=== PATIENT | female | born 1985 | race American Indian/Alaskan Native ===

== ENCOUNTER 2020-07-11 07:07 | Day surgery (SDC) | payer MEDICAID ==
[2020-07-09 10:36] LABS: Hematocrit 35.1 % (30.3-42.9); Hemoglobin 10.9 gm/dl (10.1-14.3); Mean Corpuscular HGB Conc 31 % (30-34); Platelet Count 507 K/mm3 (140-440); Red Blood Count 5.11 M/mm3 (3.65-5.03); Red Cell Distribution Width 18.3 % (13.2-15.2)
[2020-07-09 10:46] LABS: Mean Corpuscular Volume 69 fl (79-97)
--- NOTE | 2020-07-10 16:21 | Short Stay Summary ---
Short Stay Documentation Date of service: 07/11/20 Narrative H&P: 35y/o with findings of a left vulvar mass. The patient reports pain from the site. The mass is consistent with a cyst. She requests removal and excision. Patient has been reassessed/reevaluated/re-examined. H&P has been reviewed. No interval changes. - History Principal diagnosis: Vulvar mass Past Medical History: other (morbid obesity; eczema; sickle cell trait) Past Surgical History: No surgical history Social history: single - Allergies and Medications Current Medications: Allergies No Known Allergies Allergy (Unverified 07/04/20 14:29) Home Medications Medication Instructions Recorded Confirmed Last Taken Type No Known Home Medications [No 07/04/20 07/04/20 Unknown History Reported Home Medications] Active Medications Lactated Ringer's (Lactated Ringers) 1,000 mls @ 100 mls/hr IV DIRECT EMELY Stop: 07/11/20 23:59 Midazolam HCl (Versed) 2 mg IV PREOP NR Stop: 07/11/20 23:59 - Physical exam General appearance: no acute distress Integumentary: no rash HEENT: Atraumatic Lungs: Clear to auscultation Breasts: deferred Heart: Regular rate Gastrointestinal: normal Female Genitourinary: deferred Rectal Exam: deferred - Brief post op/procedure progress note Date of procedure: 07/11/20 Pre-op diagnosis: Left vulvar mass Post-op diagnosis: other (Left vulvar sebaceous cyst) Procedure: Drainage and excision of sebaceous cyst Anesthesia: GETA Surgeon: MALLORIE JAEGER Estimated blood loss: minimal Pathology: list (Cyst wall) Specimen disposition: to lab Condition: stable - Hospital course Hospital course: The patient was admitted the day of surgery and underwent an excision of a left vulvar cyst. Please see operative note for details of surgery. Her postoperative course was uneventful. - Disposition Condition at discharge: Good Disposition: DC-01 TO HOME OR SELFCARE - Discharge Diagnoses (1) Vulvar cyst Status: Acute Short Stay Discharge Plan Activity: other (Pelvic rest for 3 to 4 weeks) Diet: regular Additional Instructions: Schedule follow-up with Dr. Jaeger in 2 weeks Prescriptions: Ibuprofen [Motrin] 800 mg PO Q8HR PRN #30 tablet PRN Reason: Pain , Severe (7-10) HYDROcodone/APAP 5-325 [Jackson 5/325] 1 each PO Q6HR PRN #15 tablet PRN Reason: Pain
[~2020-07-11 07:07] MED LIST: LACTATED RINGERS 1,000 ML IV SCH; MIDAZOLAM 2 MG/2 ML INJ IV NR
--- NOTE | 2020-07-11 08:04 | Anesthesia Consultation ---
Anesthesia Consult and Med Hx Date of service: 07/11/20 - Airway Anesthetic Teeth Evaluation: Good ROM Head & Neck: Adequate Mental/Hyoid Distance: Adequate Mallampati Class: Class I Intubation Access Assessment: Probably Good - Pulmonary Exam CTA: Yes - Cardiac Exam Cardiac Exam: RRR - Pre-Operative Health Status ASA Pre-Surgery Classification: ASA3 Proposed Anesthetic Plan: General - Pulmonary Hx Smoking: No Hx Respiratory Symptoms: No - Cardiovascular System Hx Hypertension: No Hx Heart Attack/AMI: No Hx Percutaneous Transluminal Coronary Angioplasty (PTCA): No - Central Nervous System CVA: No - Gastrointestinal Hx Gastroesophageal Reflux Disease: No - Endocrine Hx Renal Disease: No Hx Liver Disease: No Hx Insulin Dependent Diabetes: No Hx Non-Insulin Dependent Diabetes: No Hx Thyroid Disease: No - Other Systems Hx Obesity: Yes (BMI 58) - Additional Comments Anesthesia Medical History Comments: No hx anesthetic complications.
[2020-07-11] MEDS ORDERED: HYDROmorphone 1 MG/1 ML INJ IV PRN (08:05)
--- NOTE | 2020-07-11 08:05 | Anesthesia Day of Surgery ---
Anesthesia Day of Surgery - Day of Surgery Patient Examined: Yes Patient H&P Reviewed: Yes Patient is NPO: Yes
[2020-07-11] MEDS ORDERED: propofoL 200 MG/20 ML VIAL IV ONE (08:54)
[2020-07-11] MEDS ORDERED: LIDOCAINE MPF (2%) 20 MG/1 ML VIAL 5 ML ONE (08:54)
[2020-07-11] MEDS ORDERED: HYDROmorphone 1 MG/1 ML INJ ONE (08:54)
[2020-07-11] MEDS ORDERED: LIDOCAINE 1%/EPINEPHRINE 1:100,000 VIAL (20 ML) INFILTRATI ONE ×2 (08:59→09:45)
[2020-07-11] MEDS ORDERED: ONDANSETRON 4 MG/2 ML INJ ONE (09:30)
[2020-07-11] MEDS ORDERED: dexAMETHasone 20 MG/5 ML VIAL ONE (09:30)
[2020-07-11] MEDS ORDERED: KETOROLAC 30 MG/1 ML INJ ONE (09:30)
[2020-07-11] MEDS ORDERED: SODIUM CHLORIDE 0.9% IRR 1,500 ML BOTTLE IR ONE (09:45)
--- NOTE | 2020-07-11 10:02 | Operative Report ---
Operative Report Operative Report: Date of procedure: July 11, 2020 Pre-operative diagnosis: Left vulvar mass Post-operative diagnosis: Left vulvar sebaceous cyst Procedure name(s): Excision and drainage of vulvar cyst Surgeon: Milady Suggs M.D. Estimated blood loss: Minimal Anesthesia: LMA Findings Left vulvar cyst with findings of a bloody fluid material also containing solid sebaceous particles Indication: 35-year-old -0-1-3 with history of a persistent left vulvar cyst Procedure The patient was taken to the operating room and given LMA as anesthesia. She was prepped and draped in a normal sterile fashion. Prior to her anesthesia and a timeout was performed that confirmed the patient and the procedure that was to be performed. The patient was placed in high lithotomy position after her draping. The left vulvar area was injected with lidocaine and epinephrine. An incision was made on the medial aspect of the vulvar mass with extraction of a bloody sebaceous material. The vulvar cyst wall was grasped with the Allis clamp. The vulvar cyst was excised with the Metzenbaum scissors and the scalpe l. The defect that was created in the vulvar was reapproximated with 3-0 Vicryl in a running fashion. The skin was reapproximated with 3-0 Vicryl. The site was hemostatic. The sebaceous material and the cyst wall was sent to pathology. The patient was then extubated and taken to the recovery room in stable condition. All sponge laps and needle counts correct x2.
[2020-07-11 11:01] VITALS: BP 113/65
--- NOTE | 2020-07-11 13:33 | Post Anesthesia Evaluation ---
- Post Anesthesia Evaluation Patient Participated: Yes Airway Patent: Yes Stable Respiratory Function: Yes Nausea/Vomiting: No Temp > 96.8F: Yes Pain Manageable: Yes Adequeate Hydration: Yes Anesthesia Complications: No
== END 2020-07-11 12:43 | disposition home or self-care (01) ==
LOC: OR 07:07
PROVIDERS: ATTEND Obstetrics & Gynecology
DX: N90.89 Other specified noninflammatory disorders of vulva and perineum (principal); N90.7 Vulvar cyst; Z20.828 Contact with and (suspected) exposure to other viral communicable diseases; G43.909 Migraine, unspecified, not intractable, without status migrainosus; Z98.891 History of uterine scar from previous surgery; Z83.3 Family history of diabetes mellitus; Z98.890 Other specified postprocedural states; Z79.899 Other long term (current) drug therapy; Z82.49 Family history of ischemic heart disease and other diseases of the circulatory system
CPT/HCPCS: 11422; 36415; 84703; 85027; 87075; 87116; 88305; 88312; 88341; 88342; J0690; J1100; J1170; J1885; J2250; J2405; J2704; J7120; U0003; 88304

== ENCOUNTER 2022-06-24 14:15 | Outpatient (CLI) | payer MEDICAID ==
[2022-06-24 16:02] LABS: Alanine Aminotransferase 11 units/L (7-56); Albumin 3.8 g/dL (3.9-5); Calcium 9.1 mg/dL (8.4-10.2); Chol/HDL Ratio 2.84 %; HDL Cholesterol 46 mg/dL (40-59); Hemolysis Index 4; Iron 24 ug/dL (37-170); LDL Cholesterol,Direct 79 mg/dL (50-130); Total Iron Binding Capacity 248 mcg/dL (250-450)
[2022-06-24 16:24] LABS: Basophils # (Auto) 0.1 K/mm3 (0.0-0.1); Basophils % (Auto) 0.6 % (0.0-1.8); Blood Urea Nitrogen 12 mg/dL (7-17); Eosinophils # (Auto) 0.4 K/mm3 (0.0-0.4); Eosinophils % (Auto) 4.3 % (0.0-4.3); Hematocrit 37.5 % (30.3-42.9); Hemoglobin 11.6 gm/dl (10.1-14.3); Lymphocytes # (Auto) 2.6 K/mm3 (1.2-5.4); Lymphocytes % (Auto) 26.8 % (13.4-35.0); Mean Corpuscular HGB Conc 31 % (30-34); Monocytes # (Auto) 0.5 K/mm3 (0.0-0.8); Monocytes % (Auto) 5.5 % (0.0-7.3); Platelet Count 465 K/mm3 (140-440); Red Blood Count 5.56 M/mm3 (3.65-5.03); Red Cell Distribution Width 19.8 % (13.2-15.2)
[2022-06-24 16:45] LABS: BUN/Creatinine Ratio 24
[2022-06-24 18:00] LABS: Mean Corpuscular Volume 68 fl (79-97)
== END 2022-06-24 14:16 | disposition home or self-care (01) ==
LOC: LAB 14:15
PROVIDERS: ATTEND Surgery
DX: Z13.29 Encounter for screening for other suspected endocrine disorder (principal); Z13.21 Encounter for screening for nutritional disorder; E66.01 Morbid (severe) obesity due to excess calories; E55.9 Vitamin D deficiency, unspecified; K90.9 Intestinal malabsorption, unspecified; E11.9 Type 2 diabetes mellitus without complications; K30 Functional dyspepsia; Z98.84 Bariatric surgery status
CPT/HCPCS: 36415; 80053; 80061; 82306; 82607; 82728; 83036; 83550; 84425; 84443; 85025

== ENCOUNTER 2022-07-04 08:09 | Outpatient (CLI) | payer MEDICAID ==
--- NOTE | 2022-07-04 09:27 | Fluoroscopy Report ---
BARIUM SWALLOW Indication: FUNCTIONAL DYSPEPSIA. Technique: Single and double contrast barium technique utilized to evaluate the esophagus. FINDINGS: To begin the exam, swallowing was evaluated in the lateral position under direct fluorosco py. Swallowing was normal. No mucosal irregularity, mass, mass effect, or critical stenosis. There were no abnormal tertiary c ontractions as seen with dysmotility. No gastroesophageal reflux. IMPRESSION: Unremarkable exam. Fluoroscopic time: 0.9 minutes Number of fluoroscopic images: 16 Signer Name: Roverto Tidwell Jr, MD Signed: 07/04/2022 9:23 AM Workstation Name: [id number]
== END 2022-07-04 08:10 | disposition home or self-care (01) ==
LOC: FLUORO 08:09
PROVIDERS: ATTEND Surgery
DX: E66.01 Morbid (severe) obesity due to excess calories (principal)
CPT/HCPCS: 74220